=== PATIENT | male | born 1945 | race Caucasian/White ===

== ENCOUNTER 2018-05-25 11:30 | Inpatient (IN) ==
[2018-05-25] MEDS ORDERED: Naloxone 0.4 MG/ML INJ IVP PRN (14:45)
[2018-05-25] MEDS ORDERED: OXYCODONE Oral CONC 10 MG/0.5 ML ORAL.SYG SL PRN ×2 (14:51)
--- NOTE | 2018-05-25 15:02 | Acute Care Surgery H&P ---
<Santillan,Faraaz - Last Filed: 05/25/18 15:59> Date of Encounter: 05/25/18 Time of Encounter: 14:55 Assessment and Plan (1) Cholelithiasis Status: Acute 73-year-old male past medical history significant for CAD status post stents 3, CHF with AICD presents today complaining of epigastric, right upper quadrant abdominal pain. - Began after eating [employer] last night - Radiates through to back - Associated with sharp, stabbing pain that comes and goes - Positive Osuna sign on exam - Right upper quadrant ultrasound suggestive of cholelithiasis without clear evidence of cholecystitis PLAN: Patient presents from [facility] with cholelithiasis possibly causing biliary colic. Patient was sent here due to complicated cardiac history. - Cardiology recommendations appreciated for pre-cardiac clearance - If cleared we will proceed with cholecystectomy later this week - Patient is currently on aspirin and Eliquis; We will hold Eliquis for the next 72 hours, with anticipation of surgery later this week - Pain control as needed; PRN zofran as needed for nausea - Clear liquid diet until otherwise specified - CBC in the AM - Continue to monitor for fevers or worsening leukocytosis; monitor for worsening of symptoms The assessment and plan as outlined above was discussed with the patient and/or family members who expressed understanding and agreement. All questions were answered. Qualifiers: Cholelithiasis location: gallbladder Cholecystitis presence: without cholecystitis Biliary obstruction: without biliary obstruction Qualified Code(s): K80.20 - Calculus of gallbladder without cholecystitis without obstruction (2) RUQ abdominal pain Status: Acute Plan as above assessment (3) CAD (coronary artery disease) Status: Chronic Patient recently seen and evaluated approximately 10 days ago with complaints of chest pain. - History of CAD status post 3 stents and CHF status post AICD/pacemaker - Currently managed with aspirin and Eliquis, atorvastatin, ezetimibe, furosemide, Entresto - Pharmacologic stress test done: No perfusion evidence for ischemia; large sized, this severe intensity perfusion defect involving mid to distal anterior and anteroseptal hernandez, apex, and distal inferolateral wall - EF = estimated 33% - Patient had negative troponin and negative EKG at [facility] where he was evaluated prior to presenting to [facility] today; currently denies chest pain, and states that this pain is different from his previous MIs PLAN: Patient sent from [facility] for for further evaluation of cholelithiasis in the setting of complex cardiac history - Cardiology recommendations appreciated for preoperative cardiac clearance - We will continue home medications, but will hold Eliquis; likely will perform surgery after 72 hours pending cardiac clearance - Otherwise we will obtain EKG and troponin to rule out cardiac etiology for pain Qualifiers: Coronary Disease-Associated Artery/Lesion type: [place] artery [place] vs. transplanted heart: [place] heart Associated angina: without angina Qualified Code(s): I25.10 - Atherosclerotic heart disease of [place] coronary artery without angina pectoris (4) CHF (congestive heart failure) Status: Acute Previous echo on 05/06/18 indicates moderate to severely reduced LV systolic dysfunction. PLAN: - Pending preoperative cardiac clearance for possible cholecystectomy - Otherwise plan as above Qualifiers: Heart failure type: unspecified Heart failure chronicity: chronic Qualified Code(s): I50.9 - Heart failure, unspecified History of Present Illness Chief complaint: Abdominal Pain HPI: Mr. Kraus is a 73 year old male with past medical history significant for prostate cancer, coronary artery disease status post stenting 3 currently on aspirin and Eliquis, CHF status post AICD who presents today from [facility] complaining of pains in the epigastric and right upper quadrant of his abdomen. Patient states that pain began as of last evening, but has persisted on and off over the course the past 6 months. Pains initially started after he ate long [employer] with his last night. Describes the pain as constant, tight and squeezing, with intermittent sharp, stabbing pain. Pain radiates through to his back, and is described as moderate to severe. Patient initially took [id number] antacids without any relief. He did not take any other medications. He states that this pain feels different from his previous heart attacks. Past surgical history includes appendectomy and previous cardiac stenting procedures. Patient does not drink alcohol or smoke cigarettes. She denies patricia-colored stools, dark-colored urine, hematuria, hematochezia, melena. He otherwise denies fevers/chills, headaches, blurry vision, chest pain, palpitations, difficulty breathing, wheezing, nausea, vomiting, diarrhea, constipation, dysuria, weakness or fatigue. On evaluation in the ED at [facility], patient's initial vitals are hemodynamically stable. On exam, patient had abdominal tenderness, but no other exam findings. Lab work was essentially benign. LFTs were normal. Troponin was negative. EKG and CT of the abdomen and pelvis were apparently done, but were not included in the paperwork. However ultrasound of the gallbladder did show cholelithiasis without clear evidence of cholecystitis. Additionally showed diffuse fatty change in the liver. Patient was sent over to [facility] for further management of cholelithiasis and abdominal pain in the setting of complex cardiac history. Past Med Surg Social Fam HX - Past Medical History Attestation: Yes The following information was validated with the patient. Source: patient, old records reviewed Medical history: CHF, hyperlipidemia, myocardial infarction Additional medical history: prostate cancer Psychiatric history: no psych history - Past Surgical History Surgical History: angioplasty/stent, appendectomy, pacemaker/AICD - Social History Smoking Status: Never smoker Alcohol use: none Drug use: none - Family History Father Hx Family Cardiac Disorders: Yes Mother Hx Family Cardiac Disorders: Yes Hx Family Cancer: Yes Medications and Allergies RX: Apixaban [Eliquis] 5 mg PO BID 05/13/18 [History] RX: Atorvastatin Calcium 80 mg PO DAILY 05/13/18 [History] RX: Cholecalciferol (D-3) [Vitamin D] 1,000 unit PO DAILY 05/13/18 [History] RX: Ezetimibe [Zetia] 10 mg PO DAILY 05/13/18 [History] RX: Furosemide [Lasix] 40 mg PO BID PRN 05/13/18 [History] RX: Montelukast [Singulair] 10 mg PO DAILY 05/13/18 [History] RX: Pantoprazole Sodium [Protonix] 20 mg PO DAILY 05/13/18 [History] RX: Potassium Chloride [K-Tab ER] 20 meq PO DAILY 05/13/18 [History] RX: Sacubitril/Valsartan 49/51 mg [Entresto 49 mg-51 mg Tablet] 1 tab PO BID 05/13/18 [History] RX: Aspirin 81 mg PO DAILY #30 tab.chew 05/14/18 [Rx] RX: Carvedilol [Coreg] 3.125 mg PO BIDWM 05/25/18 [History] Ciprofloxacin/Ciprofloxa HCl [Cipro Xr 500 mg Tablet] 500 mg PO BID 10 Days #20 tbmp.24hr 05/28/18 [Rx] Oxycodone HCl/Acetaminophen [Percocet 5-325 mg Tablet] 1 each PO Q4HR 7 Days #28 tablet 05/28/18 [Rx] Allergy/AdvReac Type Severity Reaction Status Date / Time No Known Allergies Allergy Verified 05/26/18 12:09 Review of Systems All systems PM: reviewed and no additional remarkable complaints except as stated All systems PM: The remainder of the systems were reviewed and are negative - Constitutional fatigue, malaise, no anorexia, no chills, no fever(s), no headache(s), no lethargy - EENT Nose, mouth and throat: no headache(s), no neck pain - Cardiovascular no chest pain, no chest pain at rest, no chest pain with activity, no dyspnea, no dyspnea on exertion, no irregular heart rhythm, no radiating jaw, neck or arm pain, no lightheadedness, no palpitations, no radiating pain - Respiratory no cough, no dyspnea, no hemoptysis - Gastrointestinal abdominal pain, cramping, no bloating, no change in stool character, no constipation, no diarrhea, no heartburn, no hematemesis, no hematochezia, no melena, no nausea, no vomiting - Genitourinary no flank pain - Musculoskeletal back pain, no neck pain - Integumentary no jaundice - Neurological no dizziness, no syncope General Surgery Exam Initial Vital Signs Pulse Ox 98 05/25/18 14:35 - General physical appearance well developed, well nourished, no distress, other (mild pain currently) - ENT no hearing loss, atraumatic, normocephalic, CN 2-12 grossly intact - Neck trachea midline - Respiratory normal expansion, normal respiratory effort, clear to auscultation - Cardiovascular Cardiovascular exam: Present: RRR, regular rhythm, no murmurs/rubs/gallops - Expanded Cardiovascular Exam Peripheral pulses: 2+: Radial (L), Radial (R) - Abdomen Abdomen general surgery: Present: bowel sounds present, soft. Absent: non tender, distended Abdominal Tenderness: Present: epigastic (Tentative palpation in the epigastric region; otherwise no guarding, rebound tenderness, rigidity), RUQ (Positive Osuna sign) - Integumentary Integumentary general surgery: Present: warm and dry, no abnormal pigmentation - Neurologic Present: CN 2-12 grossly intact, normal coordination - Musculoskeletal Present: normal posture - Psychiatric Psychiatric general surgery: Present: A&Ox3, appropriate, oriented to person, oriented to place, oriented to time, speech is normal, memory intact Results - Labs 05/25/18 15:04 05/25/18 15:04 All other labs normal. <NateAneudy T - Last Filed: 05/28/18 18:19> Date of Encounter: 05/25/18 Assessment and Plan (1) Cholelithiasis Status: Acute The assessment and plan as outlined above was discussed with the patient and/or family members who expressed understanding and agreement. All questions were answered. Qualifiers: Cholelithiasis location: gallbladder Cholecystitis presence: without cholecystitis Biliary obstruction: without biliary obstruction Qualified Code(s): K80.20 - Calculus of gallbladder without cholecystitis without obstruction (2) S/P laparoscopic cholecystectomy Status: Acute The assessment and plan as outlined above was discussed with the patient and/or family members who expressed understanding and agreement. All questions were answered. History of Present Illness HPI: Mr. Kraus is a 73 year old male Review of Systems All systems PM: The remainder of the systems were reviewed and are negative General Surgery Exam Initial Vital Signs Pulse Ox 98 05/25/18 14:35 Results - Labs 05/26/18 06:08 05/25/18 15:04 Abnormal lab results RBC 4.17 M/mcL (4.19-5.50) L 05/26/18 06:08 Hgb 11.5 g/dL (12.9-16.9) L 05/26/18 06:08 Hct 36.3 % (37.5-50.1) L 05/26/18 06:08 MCH 27.6 pg (28.0-33.3) L 05/26/18 06:08 PT 12.7 Seconds (9.4-12.1) H 05/25/18 15:04 APTT 39.9 Seconds (26.0-36.0) H 05/25/18 15:04 BUN 25 mg/dL (8-23) H 05/25/18 15:04 POC Glucose 127 mg/dL (70-99) H 05/28/18 11:56 Total Bilirubin 1.1 mg/dL (0.3-1.0) H 05/25/18 15:04 HDL Cholesterol 38 mg/dL (40-59) L 05/25/18 15:04 All other labs normal. - Attending Attestation I examined this patient and my medical decision-making was reviewed with the Resident Physician. I agree with the documented findings, disposition and treatment plan as described except to the extent set forth below. The patient is seen and evaluated with the resident. He is on Eloquis and this will be discontinued in anticipation of surgery for recalcitrant biliary colic. Cardiology evaluation for AICD and CHF. Aneudy Sullivan MD FACS
[2018-05-25 15:20] LABS: Basophils % 0.4 %; Eosinophils # 0.2 K/mcL (0.0-0.6); Eosinophils % 1.9 %; Hematocrit 37.1 % (37.5-50.1); Immature Granulocytes % 0.3 % (0-4); Lymphocytes # 2.4 K/mcL (0.6-4.6); Lymphocytes % 23.8 %; Mean Corpuscular HGB Conc 32.3 g/dL (31.6-35.5); Mean Corpuscular Hemoglobin 28.1 pg (28.0-33.3); Mean Corpuscular Volume 86.9 fL (83.0-100.0); Mean Platelet Volume 10.7 fL (9.4-12.4); Monocytes % 10.1 %; Neutrophils # 6.3 K/mcL (1.6-8.9); Platelet Count 203 K/mcL (140-400); Red Blood Count 4.27 M/mcL (4.19-5.50); Red Cell Distribution Width 13.1 % (11.5-14.5); Segmented Neutrophils % 63.5 %
[2018-05-25 15:30] LABS: INR 1.1; Prothrombin Time 12.7 Seconds (9.4-12.1)
[2018-05-25 15:32] LABS: Activated Partial Thrombo Time 39.9 Seconds (26.0-36.0)
[2018-05-25 15:43] LABS: Alanine Aminotransferase 14 Units/L (7-52); Albumin 4.1 g/dL (3.5-5.7); Albumin/Globulin Ratio 1.6 (1.1-2.2); Alkaline Phosphatase 48 Units/L (34-104); Aspartate Amino Transferase 14 Units/L (13-39); BUN/Creatinine Ratio 24 (6-26); Bilirubin,Total 1.1 mg/dL (0.3-1.0); Blood Urea Nitrogen 25 mg/dL (8-23); Carbon Dioxide 28 mEq/L (23-29); Chloride 106 mEq/L (98-107); Chol/HDL Ratio 2.7 (0-4.9); Cholesterol 102 mg/dL (< 200); Globulin 2.6 g/dL (2.4-3.5); Glucose 94 mg/dL (70-105); HDL Cholesterol 38 mg/dL (40-59); LDL Cholesterol,Calculated 54 mg/dL (0-99); Magnesium 2.4 mg/dL (1.6-2.6); Osmolality,Calculated 290 (280-300); Phosphorous 3.5 mg/dL (2.7-4.5); Potassium 3.9 mEq/L (3.5-5.1); Sodium 138 mEq/L (136-145); Total Protein 6.7 g/dL (6.4-8.9); Triglycerides 51 mg/dL (< 150); Troponin I < 0.03 ng/mL (< 0.04); eGFR For Non-African Americans > 60 (> 60)
[2018-05-25] MEDS ORDERED: Ondansetron ODT 4 MG TAB.RAPDIS SL PRN (15:52)
[2018-05-25] MEDS ORDERED: Furosemide 40 MG TABLET PO PRN (20:54)
[2018-05-26] MEDS: SACUBITRIL/VALSARTAN 49/51 MG TABLET PO SCH ×3 (00:14→22:49)
[2018-05-26 07:13] LABS: Basophils % 0.5 %; Eosinophils # 0.3 K/mcL (0.0-0.6); Eosinophils % 4.1 %; Hematocrit 36.3 % (37.5-50.1); Hemoglobin 11.5 g/dL (12.9-16.9); Immature Granulocytes % 0.3 % (0-4); Lymphocytes # 1.8 K/mcL (0.6-4.6); Lymphocytes % 28.5 %; Mean Corpuscular HGB Conc 31.7 g/dL (31.6-35.5); Mean Corpuscular Hemoglobin 27.6 pg (28.0-33.3); Mean Corpuscular Volume 87.1 fL (83.0-100.0); Mean Platelet Volume 11.2 fL (9.4-12.4); Monocytes # 0.7 K/mcL (0.0-1.3); Monocytes % 10.8 %; Neutrophils # 3.6 K/mcL (1.6-8.9); Platelet Count 184 K/mcL (140-400); Red Blood Count 4.17 M/mcL (4.19-5.50); Red Cell Distribution Width 13.1 % (11.5-14.5); Segmented Neutrophils % 55.8 %
[2018-05-26] MEDS: Cholecalciferol (D-3) 1,000 UNIT TABLET PO SCH (08:12)
[2018-05-26] MEDS: Aspirin 81 MG TAB.CHEW PO SCH (08:12)
--- NOTE | 2018-05-26 08:31 | Event Note ---
Date of Encounter: 05/26/18 Time of Encounter: 08:30 - Cardiology Event Note 73-year-old male with multiple cardiac risk factors including coronary artery disease status post PCI. Patient recently seen and evaluated by cardiology April 2018 found to have a unremarkable stress test and mild to moderate LV sys tolic dysfunction. Patient is asymptomatic denies any chest pain, shortness breath, descensus, orthopnea, PND, presyncope or syncope. Patient is active physically maintaining activities of daily life without any restrictions. Patient would likely be moderate risk for cardiac events with upcoming surgery. No further cardiac testing at this time
--- NOTE | 2018-05-26 08:54 | AcuteCareSurgery Progress Note ---
<Lindsey Santillan - Last Filed: 05/26/18 11:40> Date of Encounter: 05/26/18 Time of Encounter: 08:54 - Assessment and Plan (1) Cholelithiasis Current Visit: Yes Status: Acute This is a 73-year-old male with past medical history significant for CAD status post stents 3, CHF with AICD who presents today complaining of epigastric, right upper quadrant abdominal pain PLAN: - Cardiology has seen and evaluated patient, and cleared him for surgery. Determined he is a moderate risk given his cardiac history. We will plan for surgery tomorrow with Dr. Cazares - Continue to hold Eliquis - Otherwise will continue home medications - Continue with clear liquid diet; nothing by mouth at midnight for surgery tomorrow - Pain control as needed; when necessary Zofran as needed for nausea - Continue to monitor for fevers or worsening leukocytosis Qualifiers: Cholelithiasis location: gallbladder Cholecystitis presence: without cholecystitis Biliary obstruction: without biliary obstruction Qualified Code(s): K80.20 - Calculus of gallbladder without cholecystitis without obstruction (2) RUQ abdominal pain Current Visit: Yes Status: Acute Plan as above (3) CAD (coronary artery disease) Current Visit: No Status: Chronic History of CAD status post 3 stents and CHF status post AICD/pacemaker PLAN: Patient sent from [facility] for for further evaluation of cholelithiasis in the setting of complex cardiac history - Cardiology has seen and evaluated patient. Cleared for surgery tomorrow. He is a moderate risk for surgery given his cardiac history - We will continue holding Eliquis; otherwise we will continue home medications Qualifiers: Coronary Disease-Associated Artery/Lesion type: [place] artery [place] vs. transplanted heart: [place] heart Associated angina: without angina Qualified Code(s): I25.10 - Atherosclerotic heart disease of [place] coronary artery without angina pectoris (4) CHF (congestive heart failure) Current Visit: No Status: Acute Previous echo on 05/06/18 indicates moderate to severely reduced LV systolic dysfunction. PLAN: - Plan as above Qualifiers: Heart failure type: unspecified Heart failure chronicity: chronic Qualified Code(s): I50.9 - Heart failure, unspecified Subjective Patient reports: no new complaints, feels better, pain is less, tolerating liquids well, afebrile Narrative: Patient was seen and examined at bedside this morning. Cardiology came and saw patient. Determine use moderate risk for surgery given his history, but he reports no acute complaints at this time. Recent workup was done approximately 10 days ago and his previous admission. Otherwise the patient is resting comfortably in bed. He has no complaints. His pain from yesterday has decreased, and he remains comfortable. He denies any nausea, vomiting, diarrhea. He is hemodynamically stable, afebrile without leukocytosis. Patient has had his Eliquis held since admission. He notes that his last dose was approximately 2 nights ago. Objective Vital Signs - Last 8 Hours Temp Pulse Resp BP Pulse Ox 05/26/18 04:11 97.6 F 61 14 97/53 96 Intake and Output 05/25/18 05/26/18 05/26/18 23:59 07:59 15:59 Intake Total 0 / 0 0 / 0 Output Total 0 / 0 675 / 675 Balance 0 / 0 -675 / -675 Intake: Oral 0 / 0 0 / 0 Output: Urine 0 / 0 675 / 675 Other: Weight 96.2 kg Patient Weight 05/26/18 23:59 Weight 96.2 kg - General physical appearance well developed, well nourished, no distress, no pain - Eyes PERRL, normal ocular movement - ENT normal mucosa, no hearing loss, no congestion - Respiratory normal expansion, normal respiratory effort, clear to auscultation - Cardiovascular Cardiovascular exam: Present: RRR, regular rhythm, no murmurs/rubs/gallops - Abdomen Abdomen: Present: bowel sounds present, soft, non tender - Psychiatric oriented to time, oriented to person, oriented to place, speech is normal, memory intact - Labs 05/26/18 06:08 05/25/18 15:04 Diabetes panel 05/25/18 Range/Units 15:04 Sodium 138 (136-145) mEq/L Potassium 3.9 (3.5-5.1) mEq/L Chloride 106 (98-107) mEq/L Carbon Dioxide 28 (23-29) mEq/L BUN 25 H (8-23) mg/dL Creatinine 1.03 (0.70-1.30) mg/dL Glucose 94 (70-105) mg/dL Calcium 9.0 (8.6-10.3) mg/dL AST 14 (13-39) Units/L ALT 14 (7-52) Units/L Alkaline Phosphatase 48 (34-104) Units/L Albumin 4.1 (3.5-5.7) g/dL Triglycerides 51 (< 150) mg/dL HDL Cholesterol 38 L (40-59) mg/dL Calcium panel 05/25/18 Range/Units 15:04 Calcium 9.0 (8.6-10.3) mg/dL Phosphorus 3.5 (2.7-4.5) mg/dL Albumin 4.1 (3.5-5.7) g/dL Pituitary panel 05/25/18 Range/Units 15:04 Sodium 138 (136-145) mEq/L Potassium 3.9 (3.5-5.1) mEq/L Chloride 106 (98-107) mEq/L Carbon Dioxide 28 (23-29) mEq/L BUN 25 H (8-23) mg/dL Creatinine 1.03 (0.70-1.30) mg/dL Glucose 94 (70-105) mg/dL Calcium 9.0 (8.6-10.3) mg/dL Adrenal panel 05/25/18 Range/Units 15:04 Sodium 138 (136-145) mEq/L Potassium 3.9 (3.5-5.1) mEq/L Chloride 106 (98-107) mEq/L Carbon Dioxide 28 (23-29) mEq/L BUN 25 H (8-23) mg/dL Creatinine 1.03 (0.70-1.30) mg/dL Glucose 94 (70-105) mg/dL Calcium 9.0 (8.6-10.3) mg/dL Total Bilirubin 1.1 H (0.3-1.0) mg/dL AST 14 (13-39) Units/L ALT 14 (7-52) Units/L Alkaline Phosphatase 48 (34-104) Units/L Albumin 4.1 (3.5-5.7) g/dL - VTE Reasons for not Prescribing Prophylaxis: Treatment not Indicated - Low risk for VTE Consult Discharge Plan - Plan Referrals: NONE,PCP [Primary Care Provider] - <Nelda Berumen F - Last Filed: 05/26/18 11:58> Date of Encounter: 05/26/18 Objective Vital Signs - Last 8 Hours Temp Pulse Resp BP Pulse Ox 05/26/18 10:37 97.6 F 75 16 92/54 95 05/26/18 04:11 97.6 F 61 14 97/53 96 Intake and Output 05/25/18 05/26/18 05/26/18 23:59 07:59 15:59 Intake Total 0 / 0 0 / 0 760 / 760 Output Total 0 / 0 675 / 675 325 / 325 Balance 0 / 0 -675 / -675 435 / 435 Intake: Oral 0 / 0 0 / 0 760 / 760 Output: Urine 0 / 0 675 / 675 325 / 325 Other: Meal Breakfast Percent of Meal Consumed 90% # Bowel Movements 0 Weight 96.2 kg Patient Weight 05/26/18 23:59 Weight 96.2 kg - Labs 05/26/18 06:08 05/25/18 15:04 Diabetes panel 05/25/18 Range/Units 15:04 Sodium 138 (136-145) mEq/L Potassium 3.9 (3.5-5.1) mEq/L Chloride 106 (98-107) mEq/L Carbon Dioxide 28 (23-29) mEq/L BUN 25 H (8-23) mg/dL Creatinine 1.03 (0.70-1.30) mg/dL Glucose 94 (70-105) mg/dL Calcium 9.0 (8.6-10.3) mg/dL AST 14 (13-39) Units/L ALT 14 (7-52) Units/L Alkaline Phosphatase 48 (34-104) Units/L Albumin 4.1 (3.5-5.7) g/dL Triglycerides 51 (< 150) mg/dL HDL Cholesterol 38 L (40-59) mg/dL Calcium panel 05/25/18 Range/Units 15:04 Calcium 9.0 (8.6-10.3) mg/dL Phosphorus 3.5 (2.7-4.5) mg/dL Albumin 4.1 (3.5-5.7) g/dL Pituitary panel 05/25/18 Range/Units 15:04 Sodium 138 (136-145) mEq/L Potassium 3.9 (3.5-5.1) mEq/L Chloride 106 (98-107) mEq/L Carbon Dioxide 28 (23-29) mEq/L BUN 25 H (8-23) mg/dL Creatinine 1.03 (0.70-1.30) mg/dL Glucose 94 (70-105) mg/dL Calcium 9.0 (8.6-10.3) mg/dL Adrenal panel 05/25/18 Range/Units 15:04 Sodium 138 (136-145) mEq/L Potassium 3.9 (3.5-5.1) mEq/L Chloride 106 (98-107) mEq/L Carbon Dioxide 28 (23-29) mEq/L BUN 25 H (8-23) mg/dL Creatinine 1.03 (0.70-1.30) mg/dL Glucose 94 (70-105) mg/dL Calcium 9.0 (8.6-10.3) mg/dL Total Bilirubin 1.1 H (0.3-1.0) mg/dL AST 14 (13-39) Units/L ALT 14 (7-52) Units/L Alkaline Phosphatase 48 (34-104) Units/L Albumin 4.1 (3.5-5.7) g/dL - Attending Attestation I examined this patient and my medical decision-making was reviewed with the Resident Physician. I agree with the documented findings, disposition and treatment plan as described except to the extent set forth below.
--- NOTE | 2018-05-26 16:23 | Electrocardiograph Report ---
[address] [address] Test Date: 2018-05-25 Pat Name: Carlos Kraus Department: 115 Room: 3A45 Gender: M Stamp Maker: : [id number] Requested By: Lindsey Santillan Order Number: [id number] Reading MD: Star Mendez Measurements Intervals [place] Rate: 61 P: -33 MN: 135 QRS: 191 QRSD: 182 T: -1 QT: 452 QTc: 455 Interpretive Statements ELECTRONIC VENTRICULAR PACEMAKER WITH PVC Electronically Signed On 05-26-2018 16:22:21 EDT by Star Mendez
--- NOTE | 2018-05-26 19:05 | Anesthesia Evaluation PreOp ---
Addendum entered and electronically signed by Maricel Brambila MD 05/27/18 15:03: Past surgeries include prostatectomy (for prostate CA - around 10 years ago) and appendectomy; patient is s/p chemo/radiation for prostate surgery; AICD initially placed 10-12 years ago with replacement 4-5 years ago (no issues); patient can achieve 4 METs; patient is agreeable to anesthesia/A-line. Original Note: Date of Encounter: 05/26/18 Time of Encounter: 18:51 - Past History Planned Operation: ROBOTIC LAP CHOLECYSTECTOMY, IOC Cardiac History: CHF (CHRONIC SYSTOLIC HEART FAILURE), Hyperlipidemia, Cardiac Stent (X3 LAST ~3 YRS AGO, ON ASA & ELLIQUIS), Pacemaker/ICD ([employer] AICD), Other (DILATED CARDIOMYOPATHY, EF ~30%, GOOD EXCERCISE TOLERANCE) Pulmonary History: Denies Any Significant HX RECORDS MANAGEMENT COORDINATOR History: Denies Any Significant HX Other Medical History: GERD (CONTROLLED) Anesthesia History: No Prior Anesthetic Complications, Past Anesthesia Alcohol Use: none Drug use: none Medications and Allergies Apixaban [Eliquis] 5 mg PO BID 05/13/18 [History] Atorvastatin Calcium 80 mg PO DAILY 05/13/18 [History] Cholecalciferol (D-3) [Vitamin D] 1,000 unit PO DAILY 05/13/18 [History] Ezetimibe [Zetia] 10 mg PO DAILY 05/13/18 [History] Furosemide [Lasix] 40 mg PO BID PRN 05/13/18 [History] Montelukast [Singulair] 10 mg PO DAILY 05/13/18 [History] Pantoprazole Sodium [Protonix] 20 mg PO DAILY 05/13/18 [History] Potassium Chloride [K-Tab ER] 20 meq PO DAILY 05/13/18 [History] Sacubitril/Valsartan 49/51 mg [Entresto 49 mg-51 mg Tablet] 1 tab PO BID 05/13/18 [History] Aspirin 81 mg PO DAILY #30 tab.chew 05/14/18 [Rx] Carvedilol [Coreg] 3.125 mg PO BIDWM 05/25/18 [History] Allergy/AdvReac Type Severity Reaction Status Date / Time No Known Allergies Allergy Verified 05/26/18 12:09 - Meds/Allergy Pre-op Review Medications Reviewed: Yes (LAST ELLIQU 05/24) Allergies Reviewed: Yes Beta Blockers on Current Med List: No Anesthesia Results - Labs 05/26/18 06:08 05/25/18 15:04 Laboratory Tests 05/25/18 05/25/18 05/25/18 15:04 15:04 15:04 PT 12.7 H INR 1.1 APTT 39.9 H Est GFR (Non-Af Amer) > 60 Calcium 9.0 Phosphorus 3.5 Magnesium 2.4 Total Bilirubin 1.1 H AST 14 ALT 14 Alkaline Phosphatase 48 Serum Total Protein 6.7 Albumin 4.1 Lipase 18 - Imaging EKG: image reviewed (PACED RHYTHM) Additional studies: STRESS TEST 05/14/2018: No perfusion evidence for ischemia. Large sized, severe intensity fixed perfusion defect involving the mid to distal anterior and anteroseptal hernandez, apex and distal inferolateral wall. Findings represent infarct. Pharmacologic stress ECG is non diagnostic for ischemia due to baseline paced rhythm. Gated EF = 33%. The left ventricle is dilated. TTE 05/14/2018: Moderate to severely reduced LV systolic dysfunction. LV endocardial border not optimally visualized in most views. Patient declined use of Definity. Moderately dilated left ventricle. Indeterminate diastolic function. Normal right ventricular structure and function. Mild mitral regurgitation. Mild pulmonic regurgitation. A device lead was visualized in the right atrium and right ventricle. Unable to estimate RVSP due to suboptimal TR signal. Anesthesia Exam Vital Signs/O2 Sat/Glucose, Most Recent Temp Pulse Resp BP Pulse Ox 97.4 F L 74 16 99/57 96 05/26/18 15:03 05/26/18 15:03 05/26/18 15:03 05/26/18 15:03 05/26/18 15:03 - HEENT Mallampati: I Teeth: Missing, Poor dentition Oral Opening: Greater than 3 - RECORDS MANAGEMENT COORDINATOR LOC: Oriented - Cardiac Rhythm: Regular - Pulmonary Breath Sounds: bilateral Clear Respiratory Effort: Symmetrical Anesthesia Assess/Plan ASA Score: 3 Anesthetic Plan: General Monitoring Plan: Standard Monitors, A-Line Recovery Plan: PACU
[2018-05-27] MEDS: 0.9 % Sodium Chloride 1,000 ML IVC SCH ×3 (08:20→23:02)
[2018-05-27] MEDS: Cholecalciferol (D-3) 1,000 UNIT TABLET PO SCH (08:21)
[2018-05-27] MEDS: SACUBITRIL/VALSARTAN 49/51 MG TABLET PO SCH ×2 (08:22→23:02)
[2018-05-27] MEDS: Aspirin 81 MG TAB.CHEW PO SCH (08:23)
--- NOTE | 2018-05-27 08:31 | AcuteCareSurgery Progress Note ---
<Lindsey Santillan - Last Filed: 05/27/18 11:00> Date of Encounter: 05/27/18 Time of Encounter: 08:28 - Assessment and Plan (1) Cholelithiasis Current Visit: Yes Status: Acute This is a 73-year-old male with past medical history significant for CAD status post stents 3, CHF with AICD who presents today complaining of epigastric, right upper quadrant abdominal pain PLAN: - Cardiology has seen and evaluated patient, and cleared him for surgery. Determined he is a moderate risk given his cardiac history. We will plan for surgery tomorrow with Dr. Cazares - Continue to hold Eliquis - Otherwise will continue home medications - Patient currently nothing by mouth - Pain control as needed; when necessary Zofran as needed for nausea - Continue to monitor for fevers or worsening leukocytosis - Plan for laparoscopic cholecystectomy this afternoon with Dr. Cazares Qualifiers: Cholelithiasis location: gallbladder Cholecystitis presence: without cholecystitis Biliary obstruction: without biliary obstruction Qualified Code(s): K80.20 - Calculus of gallbladder without cholecystitis without obstruction (2) RUQ abdominal pain Current Visit: Yes Status: Acute Plan as above (3) CAD (coronary artery disease) Current Visit: No Status: Chronic History of CAD status post 3 stents and CHF status post AICD/pacemaker PLAN: Patient sent from [facility] for for further evaluation of cholelithiasis in the setting of complex cardiac history - Cardiology has seen and evaluated patient. Cleared for surgery tomorrow. He is a moderate risk for surgery given his cardiac history - We will continue holding Eliquis; otherwise we will continue home medications Qualifiers: Coronary Disease-Associated Artery/Lesion type: [place] artery [place] vs. transplanted heart: [place] heart Associated angina: without angina Qualified Code(s): I25.10 - Atherosclerotic heart disease of [place] coronary artery without angina pectoris (4) CHF (congestive heart failure) Current Visit: No Status: Acute Previous echo on 05/06/18 indicates moderate to severely reduced LV systolic dysfunction. PLAN: - Plan as above Qualifiers: Heart failure type: unspecified Heart failure chronicity: chronic Qualified Code(s): I50.9 - Heart failure, unspecified Subjective Patient reports: no new complaints, feels better, pain is less, tolerating liquids well, voiding w/o difficulty, afebrile Narrative: Patient seen and examined at bedside this morning. He is resting comfortably. He reports no acute complaints overnight. He remains afebrile. Notes that his abdominal pain has mostly subsided. Denies nausea or vomiting. Plan for patient to go to the OR for laparoscopic cholecystectomy today. Consent has been obtained as of yesterday. Patient remains nothing by mouth at this time. We will start IV fluids for now. Objective Vital Signs - Last 8 Hours Temp Pulse Resp BP Pulse Ox 05/27/18 06:41 97.5 F L 59 16 102/66 97 05/27/18 05:43 97.5 F L 66 15 104/68 97 Intake and Output 05/26/18 05/27/18 05/27/18 23:59 07:59 15:59 Intake Total 120 / 120 0 / 0 Output Total 0 / 0 825 / 825 Balance 120 / 120 -825 / -825 Intake: Oral 120 / 120 0 / 0 Output: Urine 0 / 0 825 / 825 Other: Meal Dinner Percent of Meal Consumed 40% Blood Glucose* 94 - General physical appearance well developed, well nourished, no distress, no pain - Eyes PERRL, normal ocular movement - Respiratory normal expansion, normal respiratory effort, clear to auscultation - Cardiovascular Cardiovascular exam: Present: RRR, no murmurs/rubs/gallops - Abdomen Abdomen: Present: bowel sounds present, soft, non tender - Psychiatric oriented to time, oriented to person, oriented to place, speech is normal, memory intact - Labs 05/26/18 06:08 05/25/18 15:04 - VTE Reasons for not Prescribing Prophylaxis: Treatment not Indicated - Low risk for VTE Consult Discharge Plan - Plan Referrals: Rina Ramos MD [Partnered Physician] - <Darion Cazares - Last Filed: 05/27/18 19:06> Date of Encounter: 05/27/18 Objective Vital Signs - Last 8 Hours Temp Pulse Resp BP Pulse Ox 05/27/18 18:49 97.7 F 69 14 123/66 99 05/27/18 18:31 97.7 F 50 12 104/60 100 05/27/18 18:21 97.7 F 49 14 115/61 99 05/27/18 18:11 52 12 113/68 100 05/27/18 18:01 50 12 105/68 99 05/27/18 17:51 97.1 F L 58 14 121/66 96 Intake and Output 05/27/18 05/27/18 05/27/18 07:59 15:59 23:59 Intake Total 0 / 0 490 / 490 Output Total 825 / 825 275 / 275 Balance -825 / -825 215 / 215 -10 -10 Intake: IV Fluids 490 / 490 0.9 % Sodium Chloride 1,000 ML 470 / 470 @ 100 mls/hr IVC .Q10H THIEN Rx#: [id number] Ancef 2,000 MG In Water for inj . (sterile) 20 ML @ 200 mls/hr IVP PREOP ONE Rx#:[id number] Oral 0 / 0 0 / 0 Output: Urine 825 / 825 275 / 275 Estimated Blood Loss Other: Meal NPO # Voids 1 Blood Glucose* 94 90 107 - Labs 05/26/18 06:08 05/25/18 15:04 - Attending Attestation I have personally seen and examined the patient. I have reviewed pertinent labs, imaging, progress notes, including this one. I have discussed the plan in thorough detail with the resident and nurse practitioner. I agree with the above assessment and plan and wish to add the following... 73M admitted for cholecystitis now s/p robotic cholecystectomy; found to have a grangenous gallbladder; cont IV abx; will need PO abx (~ 3-5 days at discharge) diet as tolerated pain control with PO pain meds restart anticoagulaiton on 05/29
[2018-05-27] MEDS ORDERED: Isovue-300 50 ML VIAL ONE (15:17)
[2018-05-27] MEDS ORDERED: ceFAZolin 2,000 MG in Water for inj. (sterile) 20 ML IVP ONE (15:33)
[2018-05-27] MEDS ORDERED: *HR* Propofol 200 MG/20 ML VIAL IVP ONE (16:04)
[2018-05-27] MEDS ORDERED: *HR* Midazolam HCl 2 MG/2 ML VIAL ONE (16:04)
[2018-05-27] MEDS ORDERED: Dexamethasone 4 MG/ML VIAL ONE (16:04)
[2018-05-27] MEDS ORDERED: Lidocaine -MPF 2% 2 ML VIAL ONE (16:04)
[2018-05-27] MEDS ORDERED: *HR* PHENYLEPHRINE 1,000 MCG/10 ML SYRINGE IVP ONE (16:04)
[2018-05-27] MEDS ORDERED: Ondansetron 4 MG/2 ML VIAL ONE (16:04)
[2018-05-27] MEDS ORDERED: Heparin 1,000 UNITS/500 mL 500 ML ONE (16:04)
[2018-05-27] MEDS ORDERED: EPHEDrine 50 MG/ML VIAL ONE (16:04)
[2018-05-27] MEDS ORDERED: *HR* Rocuronium Bromide 50 MG/5 ML VIAL ONE (16:04)
[2018-05-27] MEDS ORDERED: *HR* FentaNYL (PF) 100 MCG/2 ML VIAL ONE (16:04)
[2018-05-27] MEDS ORDERED: Lidocaine -MPF 4% 5 ML AMPUL ONE (16:04)
[2018-05-27] MEDS ORDERED: Neostigmine Methylsulfate 3 MG/3 ML SYRINGE ONE (17:19)
--- NOTE | 2018-05-27 19:16 | Operative Note ---
Date of procedure: 05/27/18 Pre-op diagnosis: symptomatic cholelithiasis Post-op diagnosis: other (gangrenous cholecystitis) Procedure: robotic cholecystectomy Implants: none Complications: none Anesthesia: GETA Local Anesthetics: 0.5% Sensorcaine HCL SubQ (cc) Surgeon: Darion Cazares Was there an material assistant present: No Estimated blood loss (cc): 20 Specimen: gallbladder and contents Condition: stable Disposition: PACU Procedure in Detail: The patient was brought into the operating room suite and was placed in the supine position. Mechanical DVT prophylaxis was applied. A time-in was conducted. The patient underwent smooth induction of anesthesia. Preoperative antibiotics were given. The patient was prepped and draped in the usual fashion. A time-out was held identifying the correct patient, pathology, and procedure. Everyone was in agreement and we began the procedure. Incision to Dissection I started by creating a 12mm supraumbilical incision. Via open [place] technique I did enter into the abdomen. I inserted the 12mm trocar followed by the 30 degree camera, ensured that I did not cause intraabdominal injury upon entry, and quickly identified the gallbladder. I created a 5mm incisions one handbreadth to the left and right of the umbilical incision and an material assistant port along the R anterior axillary line. I then docked the robot in the usual fashion. Using laparoscopic graspers I managed to elevate the gallbladder above the liver. At the Console I grasp the edge of the gallbladder to retract laterally. In doing so I created a hole decompressing a tense gallbladder. It was clear to me upon retraction that the gallbladder was gangrenous in nature. It was literally peeling from the liver with minimal exertion. Using the [place] instrument as well as the hook-electrocautery, I dissected out the cystic duct and the cystic artery. I excised the posterior tissue to visualize the liver. I was able to clearly visualize the critical view of safety. I then attempted an intraoperative cholangiogram because the cystic duct appeared dilated by my eye. I used the michael instrument for my transcystic cholangiogram and immediately there was efflux of sludge, bile, and stones. the duct then decompressed before my eye. I created a cut within the gallbladder wall because it did not want to get into the common bile duct. I was not able to secure the catheter to close the cut and perform a satisfactory cholangiogram. I then performed an ICG cholangiogram which confirmed the position of the common bile duct. I then dissected further towards the bifurcation to verify anatomy. Critical view of Safety to Excison of the gallbladder I then clipped both structures using plastic clips, two on the stay side, one on the specimen side. Using robotic scissors, I cut between the clip on the specimen side and the first clip on the stay side. Then using tension and counter-tension, I used the electrocautery to excise the gallbladder off of the liver bed. Before complete excision, I evaluated the liver bed to ensure there 1.) there was no bleeding, 2. No excessive bile leakage, and 3.) to evaluate my clips. There was no bleeding, bile leakage, and the clips were all the way across both duct and artery. Removal of gallbladder to Closure After undocking the robot, I inserted the endocatch bag into the umbilical port. I placed the specimen into the bag and retrieved it through the umbilical port. i then irrgiated the liver bed and above the liver before suctioning both irrigation fluid and air. I removed the 5mm ports, turned off the insufllation, then removed the 12mm umbilical port. I then close the umbilical fascia a vicryl suture in a figure of 8 fashion. All incisions were closed with interrupted 4-0 monocryl and sealed with dermabond. The patient tolerated the procedure well and went back to PACU in stable condition.
--- NOTE | 2018-05-28 02:15 | Anesthesia Evaluation Post Op ---
Date of Encounter: 05/28/18 Time of Encounter: 18:40 - Discharge PostOp Status: Transfer Patient to floor (Patient's vital signs have been reviewed. Patient is stable postoperatively and has adequately recovered from anesthesia. Patient is determined to have stable airway patency and respiratory function including respiratory rate and oxygen saturation. Patient has a stable heart rate, blood pressure and adequate hydration. Patients mental status is acceptable. Patients temperature is appropriate. Pain and nausea are adequately controlled.)
[2018-05-28] MEDS: 0.9 % Sodium Chloride 1,000 ML IVC SCH (08:44)
[2018-05-28] MEDS: Aspirin 81 MG TAB.CHEW PO SCH (08:45)
[2018-05-28] MEDS: SACUBITRIL/VALSARTAN 49/51 MG TABLET PO SCH (08:45)
[2018-05-28] MEDS: Cholecalciferol (D-3) 1,000 UNIT TABLET PO SCH (08:45)
[2018-05-28] MEDS ORDERED: *HR* OxyCODONE/APAP 5/325 TABLET PO PRN (10:22)
[2018-05-28] MEDS ORDERED: OXYCODONE Oral CONC 10 MG/0.5 ML ORAL.SYG SL PRN (10:23)
[2018-05-28 11:56] VITALS: BP 94/58
--- NOTE | 2018-05-28 12:16 | Discharge Summary ---
Orders not resulted at time of discharge: Pending orders 05/27/18 17:25 Surgical Pathology [PTH] Routine Date of Encounter: 05/28/18 Time of Encounter: 07:30 - Discharge Diagnosis (1) Cholelithiasis Priority: Primary Status: Acute Qualifiers: Cholelithiasis location: gallbladder Cholecystitis presence: without cholecystitis Biliary obstruction: without biliary obstruction Qualified Code(s): K80.20 - Calculus of gallbladder without cholecystitis without obstruction (2) S/P laparoscopic cholecystectomy Priority: Primary Status: Acute General Surgery Exam Initial Vital Signs Pulse Ox 98 05/25/18 14:35 - General physical appearance well nourished, no distress - Eyes PERRL, normal ocular movement - ENT no congestion, dry mucosa - Neck no venous distension - Respiratory normal respiratory effort, clear to auscultation - Cardiovascular Cardiovascular exam: Present: RRR - Abdomen Abdomen general surgery: Present: soft, tender - Incision Incision: Present: clean and dry, intact - Genitourinary Present: normal penis with no external lesions - Integumentary Integumentary general surgery: Present: warm and dry - Neurologic Present: CN 2-12 grossly intact - Musculoskeletal Present: normal posture - Psychiatric Psychiatric general surgery: Present: A&Ox3, appropriate - Hospital Course Hospital course: Mr. Kraus is a 73 year old male who admitted for acute cholecystitis with cholelithiasis. He underwent lap gena after appropriate tx with abx. Surgery was noncomplicated. He is being DC'd to home on POD#1. F/U with 2-4 week s post-op. Regular diet. No heavy lifting or straining for 2-4 weeks. - Time Spent with Patient Total time spent providing and/or coordinating discharge services: Less than 30 minutes - Discharge Medications Prescriptions: Continue Montelukast [Singulair] 10 mg PO DAILY Cholecalciferol (D-3) [Vitamin D] 1,000 unit PO DAILY Ezetimibe [Zetia] 10 mg PO DAILY Apixaban [Eliquis] 5 mg PO BID Pantoprazole Sodium [Protonix] 20 mg PO DAILY Atorvastatin Calcium 80 mg PO DAILY Furosemide [Lasix] 40 mg PO BID PRN PRN Reason: Edema Potassium Chloride [K-Tab ER] 20 meq PO DAILY Sacubitril/Valsartan 49/51 mg [Entresto 49 mg-51 mg Tablet] 1 tab PO BID Aspirin 81 mg PO DAILY #30 tab.chew Carvedilol [Coreg] 3.125 mg PO BIDWM Home Medications: Apixaban [Eliquis] 5 mg PO BID 05/13/18 [History] Atorvastatin Calcium 80 mg PO DAILY 05/13/18 [History] Cholecalciferol (D-3) [Vitamin D] 1,000 unit PO DAILY 05/13/18 [History] Ezetimibe [Zetia] 10 mg PO DAILY 05/13/18 [History] Furosemide [Lasix] 40 mg PO BID PRN 05/13/18 [History] Montelukast [Singulair] 10 mg PO DAILY 05/13/18 [History] Pantoprazole Sodium [Protonix] 20 mg PO DAILY 05/13/18 [History] Potassium Chloride [K-Tab ER] 20 meq PO DAILY 05/13/18 [History] Sacubitril/Valsartan 49/51 mg [Entresto 49 mg-51 mg Tablet] 1 tab PO BID 05/13/18 [History] Aspirin 81 mg PO DAILY #30 tab.chew 05/14/18 [Rx] Carvedilol [Coreg] 3.125 mg PO BIDWM 05/25/18 [History] Ciprofloxacin/Ciprofloxa HCl [Cipro Xr 500 mg Tablet] 500 mg PO BID 10 Days #20 tbmp.24hr 05/28/18 [Rx] Oxycodone HCl/Acetaminophen [Percocet 5-325 mg Tablet] 1 each PO Q4HR 7 Days #28 tablet 05/28/18 [Rx] Allergies/Adverse Reactions: Allergy/AdvReac Type Severity Reaction Status Date / Time No Known Allergies Allergy Verified 05/26/18 12:09 Date of admission: 05/25/18 14:17 Primary care physician: PCP NONE Consults: 05/25/18 15:26 Consult to Cardiology [CONS] Routine Comment: Consulting Provider: Cardiology Xiomara Reason for Consult: Pre-Operative Clearance; Spoke with Dr. Lopez Call Completed: Yes Discharging clinician: Nelda Vaughn Anticipated date of discharge: 05/28/18 Labs on day of discharge: Labs from last 24 hours 05/28/18 05/27/18 05/27/18 07:27 19:00 10:28 POC Glucose 102 H 107 H 90 05/27/18 05:39 POC Glucose 94 - Impressions ITS Impressions Cholangiogram,Operative 05/27/18 16:45 IMPRESSION: Status post cholecystectomy with contrast freely flowing into the peritoneal cavity suggesting a bile leak. D/ / 05/27/2018 17:29:44 Abel Em MD / abigail Interpreting Provider: Abel Em MD - Patient Status Disposition: Home, Self-Care Condition: Good Overall status at discharge: patient is progressing back to baseline - Discharge Instructions Instructions: Laparoscopic Cholecystectomy (DC) Follow Up With: Evon Cantrell CNP [Advanced Practice Nurse] - 06/12/18 9:15 am Rina Ramos MD [Partnered Physician] - Additional Instructions: General Surgical Discharge Instructions 1. No pushing, pulling, or lifting greater than 15 lbs for 4 weeks (depending upon procedure). 2. You may shower beginning today, but no tub baths, soaking, or swimming for 2 weeks. 3. You may resume driving when you are off narcotics and are safe to react in a car. 4. Take ibuprofen every 8 hours for discomfort. If this does not relieve discomfort, you may take the as needed Percocet. Take narcotics as directed. Do not take more narcotics then directed and do not share your narcotics with any other person. Do not drink alcohol while on narcotics. 5. Take stool softeners (Colace) or a water based laxative (Miralax) while taking narcotics. You may hold for loose stools. 6. Report any fevers greater than 100.5F, increase abdominal discomfort, drainage that looks like pus, increased redness or pain at the surgical site, or any vomiting. 7. Report any pain in the calves, shortness of breath, or rapid heartbeat. 8. Follow-up in the office as directed. 9. If you were prescribed antibiotics, do not stop them without talking to your provider. - Diet and Activity Activity: increase activity as tolerated, other (no heavy lifting or straining for 2-4 weeks) Diet: advance to your usual diet
== END 2018-05-28 14:38 | disposition home or self-care (01) | DRG 415 ==
LOC: 3ANU → OBSVTOIN 14:17
PROVIDERS: ADMIT Surgery; ATTEND Surgery